=== PATIENT | female | born 1950 | race Caucasian/White ===

== ENCOUNTER 2021-10-03 07:42 | Emergency (ER) | payer OTHER, MEDICAID, SELFPAY ==
[2021-10-03] VITALS (44 sets, daily range): BP systolic 90–130; BP diastolic 56–71; PULSE 67–133; RESP 15–34; TEMP 36.9; O2SAT 85–100; BMI 20.7
--- NOTE | 2021-10-03 07:58 | ED_ITS ---
HPI - Neuro Symptoms/Deficit General Chief Complaint: Shortness of Breath/Dyspnea Stated Complaint: Low ox levels, numbness in lt side of face Time Seen by Provider: 10/03/21 07:57 Source: patient and family Mode of arrival: Ambulatory Limitations: language barrier (primarily Indian speaking, some micronesian) History of Present Illness HPI Narrative: This is a 71-year-old female with history of tuberculosis in 1973 and recently diagnosed lung cancer in [place] comes to emergency department with complaint of low oxygen levels and some numbness on the left side of her face. Patient is primary Indian speaking. Her daughter is currently interpreting for her but they are aware of the language line availability. Patient started having some hemoptysis when she is living in [place]. She went to the hospital and daughter states she had CT and MRI imaging showing cancer on the left lung with some compression of the bronchus and close to an artery, she also had reportedly MRI which showed some kind of lesion in her brain but unclear with this was. Patient has not had any fevers or chills, she has had shortness of breath and wheezing which daughter states is worse. She was giving something similar to albuterol inhaler in [place] which she has used with minimal improvement. She has had increasing fatigue, she has not had any persistent hemoptysis. She has pain in her chest sometimes in the left sometimes on the right and now into the back of the chest. Patient has not had any nausea or vomiting. She has had constipation but no diarrhea. She had some blood in her stool while flying here. She had that 3 years ago. Daughter states she was diagnosed with diverticulitis at that time. She had swelling in her lower extremities on a cramping on the flight over this improved but she had a significant cramping in her legs last night. Patient return to the [place] with her daughter and has been set up with Medicaid. They are trying to establish with a primary care daughter tried to make appointment with Oncology but was told they needed primary care physician referral 1st. With patient's worsening shortness of breath and O2 sat dropping to 88% at home with a home pulse ox they present here. Patient and family state no prior surgeries. No known drug allergies. No daily medications besides the inhaler that is recently been prescribed. Patient quit smoking tobacco on Thursday. She does not drink alcohol, no illicit. Related Data Allergies Allergy/AdvReac Type Severity Reaction Status Date / Time No Known Drug Allergies Allergy Verified 10/03/21 07:55 Review of Systems Review of Systems ROS Unobtainable: All systems reviewed & are unremarkable except as noted in HPI and below Exam Narrative Exam Narrative: GEN: well nourished, well appearing female, alert and oriented x 3, patient appears to be in mild distress. HEENT: Atraumatic, pupils are equal round reactive to light, extraocular movements are intact, nares are clear, Throat is clear without any exudates, erythema, tonsillar enlargement or uvular deviation, no facial droop. HEART: Regular rate and rhythm without murmur, clicks, rubs. Pulses are equal in upper and lower extremities LUNGS:Lungs clear to auscultation, no wheezes, rales, crackles, chest moves symmetrically, no tachypnea or accessory muscle use. ABD:bowel sounds normal, soft, non-tender, no guarding, rebound, rigidity, no masses noted, no hepatosplenomegaly :No CVA tenderness MSCL: Non-tender, no muscle atrophy, muscles strength 5/5 upper and lower extremities, full range of motion, normal gait NEURO:CN 2-12 intact, sensation normal SKIN: No rash, erythema or other skin changes. Initial Vital Signs Initial Vital Signs: Vital Signs Temperature 98.4 F 10/03/21 07:42 Pulse Rate 96 H 10/03/21 07:42 Respiratory Rate 18 10/03/21 07:42 Blood Pressure 108/56 L 10/03/21 07:42 Pulse Oximetry 92 10/03/21 07:42 Course Orders Ordered: ED Orders 10/03/21 15:00 Urine Microscopic Stat Discontinued Medications Acetaminophen (Acetaminophen 325 Mg Tablet) 975 mg PO NOW ONE Stop: 10/03/21 10:19 Last Admin: 10/03/21 10:36 Dose: 975 mg Documented by: WOO Dexamethasone (Dexamethasone 10 Mg/Ml Vial) 10 mg IV NOW ONE Stop: 10/03/21 09:58 Last Admin: 10/03/21 10:36 Dose: 10 mg Documented by: WOO Consultations Consultation #1: Dr. Barros, oncology at [facility]. Review patient's findings today, he recommends transfer at this time for bronch, biopsy states they typically do not place stents in the bronchus but it has been discussed in the past. Agrees with dose of dexamethasone and can be evaluated in terms of metastatic lesions in the brain about next steps as well. Time: 10:04 Vital Signs Vital signs: Vital Signs - 8 hr 10/03/21 11:30 10/03/21 12:00 10/03/21 12:38 Pulse Rate 81 80 133 H Respiratory Rate 18 19 18 Blood Pressure Pulse Oximetry 94 95 94 10/03/21 12:40 10/03/21 13:00 10/03/21 13:06 Pulse Rate 70 70 71 Respiratory Rate 23 23 24 Blood Pressure 96/63 90/63 105/71 Pulse Oximetry 96 94 94 10/03/21 13:21 10/03/21 13:30 10/03/21 13:40 Pulse Rate 76 74 71 Respiratory Rate 24 31 H 30 H Blood Pressure 126/68 101/59 L Pulse Oximetry 95 96 96 10/03/21 14:00 10/03/21 14:20 10/03/21 14:30 Pulse Rate 74 70 70 Respiratory Rate 23 21 31 H Blood Pressure 100/62 99/62 Pulse Oximetry 96 96 97 10/03/21 14:40 10/03/21 15:01 10/03/21 15:30 Pulse Rate 73 84 72 Respiratory Rate 30 H 21 Blood Pressure 102/59 L Pulse Oximetry 96 88 L 93 10/03/21 16:00 10/03/21 16:30 10/03/21 17:00 Pulse Rate 78 73 76 Respiratory Rate 34 H 24 31 H Blood Pressure Pulse Oximetry 94 96 96 MDM - Neuro Symptoms/Deficit Lab Data Result diagrams: 10/03/21 08:02 10/03/21 08:02 Labs: Lab Results 10/03/21 10/03/21 10/03/21 Range/Units 08:02 08:02 08:02 WBC 10.5 (4.5-11.0) X10^3/uL RBC 4.56 (4.0-5.2) X10^6/uL Hgb 12.8 (12.0-16.0) g/dL Hct 38.2 (36-46) % MCV 83.8 (80-100) fL MCH 28.1 (26-34) PG MCHC 33.6 (30-36) % RDW 15.2 H (11.6-14.8) % Plt Count 336 (150-400) X10^3/uL Neut % (Auto) 77.1 H (50-75) % Lymph % (Auto) 16.1 L (25-40) % [place] % (Auto) 5.6 (3-14) % Eos % (Auto) 0.5 L (2-4) % Baso % (Auto) 0.7 (0-2) % Neut # (Auto) 8100 H (5524-5063) /uL Lymph # (Auto) 1700 (5783-3016) /uL [place] # (Auto) 600 (0-900) /uL Eos # (Auto) 100 (0-450) /uL Baso # (Auto) 100 (0-100) /uL PT (10.1-12.7) SECONDS INR (0.9-1.3) APTT (26.4-36.2) SECONDS Sodium 136 L (137-145) mmol/L Potassium 4.3 (3.4-5.1) mmol/L Chloride 102 (98-107) mmol/L Carbon Dioxide 28 (22-32) mmol/L BUN 29 H (7-17) mg/dL Creatinine 0.77 (0.52-1.04) mg/dL Estimated GFR > 60 (>60) mL/min BUN/Creatinine Ratio 37.7 H (6-22) Glucose 204 H (80-110) mg/dL Lactate 1.8 (0.7-2.1) mmol/L Calcium 9.7 (8.4-10.2) mg/dL Total Bilirubin 0.2 (0.2-1.3) mg/dL AST 21 (14-36) IU/L ALT 16 (<35) IU/L Alkaline Phosphatase 78 (38-126) U/L Total Creatine Kinase (30-135) U/L CK-MB (CK-2) CK-MB (CK-2) Rel Index Troponin I (0.01-0.034) ng/mL NT-Pro-B Natriuret Pep (<125) pg/mL Total Protein 7.8 (6.3-8.2) g/dL Albumin 3.9 (3.5-5.0) g/dL Globulin 3.9 (1.7-4.1) g/dL Albumin/Globulin Ratio 1.0 (1.0-2.8) Urine RBC (0-5/HPF) Urine WBC (0-5/HPF) Ur Squamous Epith Cells (0-5/HPF) Urine Bacteria (None) Ur Culture Indicated? SARS-CoV-2 (PCR) (Negative) 10/03/21 10/03/21 10/03/21 Range/Units 08:02 08:02 08:07 WBC (4.5-11.0) X10^3/uL RBC (4.0-5.2) X10^6/uL Hgb (12.0-16.0) g/dL Hct (36-46) % MCV (80-100) fL MCH (26-34) PG MCHC (30-36) % RDW (11.6-14.8) % Plt Count (150-400) X10^3/uL Neut % (Auto) (50-75) % Lymph % (Auto) (25-40) % [place] % (Auto) (3-14) % Eos % (Auto) (2-4) % Baso % (Auto) (0-2) % Neut # (Auto) (6707-0034) /uL Lymph # (Auto) (7042-1002) /uL [place] # (Auto) (0-900) /uL Eos # (Auto) (0-450) /uL Baso # (Auto) (0-100) /uL PT 14.3 H (10.1-12.7) SECONDS INR 1.3 (0.9-1.3) APTT 31 (26.4-36.2) SECONDS Sodium (137-145) mmol/L Potassium (3.4-5.1) mmol/L Chloride (98-107) mmol/L Carbon Dioxide (22-32) mmol/L BUN (7-17) mg/dL Creatinine (0.52-1.04) mg/dL Estimated GFR (>60) mL/min BUN/Creatinine Ratio (6-22) Glucose (80-110) mg/dL Lactate (0.7-2.1) mmol/L Calcium (8.4-10.2) mg/dL Total Bilirubin (0.2-1.3) mg/dL AST (14-36) IU/L ALT (<35) IU/L Alkaline Phosphatase (38-126) U/L Total Creatine Kinase 28 L (30-135) U/L CK-MB (CK-2) TNP CK-MB (CK-2) Rel Index TNP Troponin I < 0.012 (0.01-0.034) ng/mL NT-Pro-B Natriuret Pep 287 H (<125) pg/mL Total Protein (6.3-8.2) g/dL Albumin (3.5-5.0) g/dL Globulin (1.7-4.1) g/dL Albumin/Globulin Ratio (1.0-2.8) Urine RBC (0-5/HPF) Urine WBC (0-5/HPF) Ur Squamous Epith Cells (0-5/HPF) Urine Bacteria (None) Ur Culture Indicated? SARS-CoV-2 (PCR) Negative (Negative) 10/03/21 Range/Units 15:00 WBC (4.5-11.0) X10^3/uL RBC (4.0-5.2) X10^6/uL Hgb (12.0-16.0) g/dL Hct (36-46) % MCV (80-100) fL MCH (26-34) PG MCHC (30-36) % RDW (11.6-14.8) % Plt Count (150-400) X10^3/uL Neut % (Auto) (50-75) % Lymph % (Auto) (25-40) % [place] % (Auto) (3-14) % Eos % (Auto) (2-4) % Baso % (Auto) (0-2) % Neut # (Auto) (5355-4996) /uL Lymph # (Auto) (1371-5600) /uL [place] # (Auto) (0-900) /uL Eos # (Auto) (0-450) /uL Baso # (Auto) (0-100) /uL PT (10.1-12.7) SECONDS INR (0.9-1.3) APTT (26.4-36.2) SECONDS Sodium (137-145) mmol/L Potassium (3.4-5.1) mmol/L Chloride (98-107) mmol/L Carbon Dioxide (22-32) mmol/L BUN (7-17) mg/dL Creatinine (0.52-1.04) mg/dL Estimated GFR (>60) mL/min BUN/Creatinine Ratio (6-22) Glucose (80-110) mg/dL Lactate (0.7-2.1) mmol/L Calcium (8.4-10.2) mg/dL Total Bilirubin (0.2-1.3) mg/dL AST (14-36) IU/L ALT (<35) IU/L Alkaline Phosphatase (38-126) U/L Total Creatine Kinase (30-135) U/L CK-MB (CK-2) CK-MB (CK-2) Rel Index Troponin I (0.01-0.034) ng/mL NT-Pro-B Natriuret Pep (<125) pg/mL Total Protein (6.3-8.2) g/dL Albumin (3.5-5.0) g/dL Globulin (1.7-4.1) g/dL Albumin/Globulin Ratio (1.0-2.8) Urine RBC None seen (0-5/HPF) Urine WBC 0-1/hpf (0-5/HPF) Ur Squamous Epith Cells 0-1 /hpf (0-5/HPF) Urine Bacteria None seen (None) Ur Culture Indicated? Cult not indicated SARS-CoV-2 (PCR) (Negative) Imaging Data CT scan - head: Radiologist's Impression: [place] [address] CT Scan Report Signed Patient: Hanh Molina MR#: [id number] : 1950 Acct:[id number] Age/Sex: 71 / F Date of Service: 10/03/21 Loc: ED Accession Number: [id number] ?? Procedure: CT head/brain wo/w con Ordering Provider: Leanna Najera D.O. PROCEDURE:? CT HEAD/BRAIN WO/W CON ? INDICATIONS:? new facial numbness, reported lung ca ? TECHNIQUE:? 4.5 mm thick angled axial sections acquired from the foramen magnum to the vertex both before and after the administration of intravenous contrast, with coronal and sagittal reformats.? For radiation dose reduction, the following was used:? automated exposure control, adjustment of mA and/or kV according to patient size.? ? COMPARISON:? Outside Facility, RG, MRI BRAIN WITH CONTRAST, 09/20/2021, 10:37. ? FINDINGS:? Image quality:? Excellent.? ? CSF spaces:? Basal cisterns are patent.? No extra-axial fluid collections.? Ventricles are symmetric in size and shape.? ? Brain:? No midline shift.? No intracranial bleeds.? 2.1 centimeter ring enhancing lesion noted in the right frontal lobe.? 6 millimeter in diameter ring-enhancing lesion noted in the right cingulate gyrus.? 4 millimeter ring-enhancing lesion noted in the left frontal lobe.? 7 millimeter ring-enhancing lesion noted in the left parietal lobe.? Vasogenic edema noted adjacent to the metastatic lesions.? No abnormal intracranial enhancement.? There is cerebral volume loss for age.? There is periventricular white matter chronic small vessel ischemic change.? There is intracranial internal carotid artery atherosclerosis.? There is normal postcontrast enhancement of the central cerebral arteries and the dural sinuses.? ? Skull and face:? Calvarium and visualized facial bones appear intact, without suspicious lesions.? ? Sinuses:? Visualized sinuses and mastoids are clear.? ? IMPRESSION:? ? Multiple enhancing masses compatible with metastatic disease.? Largest lesion is in the right frontal lobe and measures 2.1 centimeters in diameter. ? ? No intracranial hemorrhage.? ? Dictated by: Shari Hull MD, PhD on 10/03/2021 at 9:33 ? ? Approved by: Shari Hull MD, PhD on 10/03/2021 at 9:39?? CT scan - chest: Radiologist's Impression: [place] [address] CT Scan Report Signed Patient: Hanh Molina MR#: [id number] : 1950 Acct:[id number] Age/Sex: 71 / F Date of Service: 10/03/21 Loc: ED Accession Number: [id number] ?? Procedure: CT angio chest PE protocol Ordering Provider: Leanna Najera D.O. PROCEDURE:? CT ANGIO CHEST PE PROTOCOL ? INDICATIONS:? sob, reported lung ca, recent flight from [place] ? TECHNIQUE:? After the administration of intravenous contrast, 2 mm thick sections acquired from the pulmonary apices to the posterior costophrenic angles.? 3-dimensional maximum intensity projection (MIP) coronal and sagittal reformats were then acquired through the thorax.? For radiation dose reduction, the following was used:? automated exposure control, adjustment of mA and/or kV according to patient size.? ? COMPARISON:? Outside Facility, RG, CT THORAX WITH CONTRAST, 08/21/2021, 9:23. ? FINDINGS:? Image quality:? Excellent.? ? Pulmonary arteries:? There is marked compression of the right main pulmonary artery, which is progressive compared to prior exam.? Luminal dimension measures approximately 1 cm, compared to 1.5 cm on prior exam.? There is no visualized pulmonary embolism. ? Lungs and pleura:? Left lingular/perihilar mass is again identified measuring approximately 4.9 cm AP x 5.8 cm transverse compared to 4.6 cm AP x 5.4 cm transverse.? The mass extends into the aortic pulmonary window as well as mediastinum.? There is marked narrowing and the ventral occlusion of the distal aspect of the left mainstem bronchus with presumed distal left upper lobe lung collapse/atelectasis. ? Mediastinum:? Heart size is normal, with mild-moderate pericardial effusion.? Mediastinal adenopathy is present which has increased compared to prior exam.? A precarinal lymph node is present measuring 9 mm on series 2, image 69 measuring 4 mm on prior exam.? Subcarinal lymph node is present measuring 9 mm on series 2, image 76 previously measuring 5 mm.? Thoracic aorta is normal in caliber and enhancement.? Esophagus is normal in caliber, with mild hiatal hernia.? ? Bones and chest wall:? No suspicious bony lesions.? Ribs and thoracic spine appear intact throughout.? Thyroid gland is unremarkable.? No axillary or supraclavicular adenopathy.? ? Abdomen:? Calcifications are present within the spleen suggestive of prior granulomatous exposure.? Partially visualized presume simple right renal cyst is present.? Visualized upper abdominal solid organs appear normal in the early arterial phase of enhancement.? ? IMPRESSION:? ? Increased size of left upper lobe/perihilar mass with now occlusion of the left mainstem bronchus and distal atelectasis of the left upper lobe. ? No pulmonary embolism.? However, secondary to perihilar mass enlargement, there is marked interval narrowing of the left main pulmonary artery. ? Interval enlargement of mediastinal lymph nodes suggestive of metastatic disease progression. ? Mild pericardial effusion. ? ? Dictated by: Ellie Christianson M.D. on 10/03/2021 at 9:25 ? ? Approved by: Ellie Christianson M.D. on 10/03/2021 at 9:33?? ECG Data Attestation: I personally reviewed and interpreted this ECG as follows: Interpretation: Sinus rhythm rate 89 IN 124 QRS 84 and QTC 401. Patient's T-waves appear peaked but no other acute changes appreciated. No priors for comparison. MDM Narrative Medical decision making narrative: This is a 71-year-old female who was diagnosed with lung cancer in [facility]. Family did bring discs with them today, patient's family brought her here to the [facility] for treatment and family support. Patient has had increasing wheezing, chest pain and shortness of breath family has noted that her O2 sat is 88% at home. She initially was diagnosed secondary to having hemoptysis but has not had this persistently. They noted there was maybe a spot on an MRI in [place] and patient developed tingling on the side of her left face today. Patient not have any other known history besides tuberculosis and the 1970s which is reportedly treated. She is not normally on any daily medications she has an inhaler which is likely albuterol or similar she was discharged home with in [place]. Patient's head CT does show multiple enhancing masses compatible with metastatic disease the largest being 2.1 cm in diameter in the right frontal lobe, patient was given a dose of dexamethasone is there is some vasogenic edema noted. CT of the chest we were able to compare to her prior scans which her daughter brought with her shows left upper lobe/perihilar mass with occlusion of the left main stream bronchus and distal atelectasis of the left upper lobe, no PE but there is some interval narrowing of the left main pulmonary artery and metastatic and interval enlargement of mediastinal lymph nodes suggesting metastatic disease. Patient's labs show an elevated BUN, glucose of 204 no other major abnormalities. BNP is 287 but unlikely to be true CHF. EKG does show some peaked T-waves I suspect this may be secondary to the mass effect from her cancer. COVID swab is negative. Patient is requiring O2 to maintain O2 sats above 90%. Case was discussed with Oncology, who does recommend transfer today. There is no bed available regionally. [facility] hotline contacted and currently waitlisted and will assist in placement. Patient signed out to Dr. Escalante while attempting to find bed placement. Discharge Plan Departure Clinical Impression: Cancer, metastatic to lung, Facial tingling, Hypoxemia
[2021-10-03 08:19] LABS: Add Manual Diff / Slide Review NO; Basophils Absolute Auto 100 /uL (0-100); Basophils Percent Auto 0.7 % (0-2); Eosinophils Absolute Auto 100 /uL (0-450); Eosinophils Percent Auto 0.5 % (2-4); Hematocrit 38.2 % (36-46); Hemoglobin 12.8 g/dL (12.0-16.0); Lymphocytes Absolute Auto 1700 /uL (1100-4500); Lymphocytes Percent Auto 16.1 % (25-40); Mean Corpuscular HGB Conc 33.6 % (30-36); Mean Corpuscular Hemoglobin 28.1 PG (26-34); Mean Corpuscular Volume 83.8 fL (80-100); Monocytes Absolute Auto 600 /uL (0-900); Monocytes Percent Auto 5.6 % (3-14); Neutrophils Absolute Auto 8100 /uL (1500-7000); Neutrophils Percent Auto 77.1 % (50-75); Platelet Count 336 X10^3/uL (150-400); Red Blood Cell Count 4.56 X10^6/uL (4.0-5.2); Red Cell Distribution Width 15.2 % (11.6-14.8); White Blood Cell Count 10.5 X10^3/uL (4.5-11.0)
--- NOTE | 2021-10-03 08:25 | DI.CT.S_ITS ---
PROCEDURE: CT ANGIO CHEST PE PROTOCOL INDICATIONS: sob, reported lung ca, recent flight from [place] TECHNIQUE: After the administration of intravenous contrast, 2 mm thick sections acquired from the pulmonary apices to the posterior costophrenic angles. 3-dimensional maximum intensity projection (MIP) coronal and sagittal reformats were then acquired through the thorax. For radiation dose reduction, the following was used: automated exposure control, adjustment of mA and/or kV according to patient size. COMPARISON: Outside Facility, RG, CT THORAX WITH CONTRAST, 08/21/2021, 9:23. FINDINGS: Image quality: Excellent. Pulmonary arteries: There is marked compression of the right main pulmonary artery, which is progressive compared to prior exam. Luminal dimension measures approximately 1 cm, compared to 1.5 cm on prior exam. There is no visualized pulmonary embolism. Lungs and pleura: Left lingular/perihilar mass is again identified measuring approximately 4.9 cm AP x 5.8 cm transverse compared to 4.6 cm AP x 5.4 cm transverse. The mass extends into the aortic pulmonary window as well as mediastinum. There is marked narrowing and the ventral occlusion of the distal aspect of the left mainstem bronchus with presumed distal left upper lobe lung collapse/atelectasis. Mediastinum: Heart size is normal, with mild-moderate pericardial effusion. Mediastinal adenopathy is present which has increased compared to prior exam. A precarinal lymph node is present measuring 9 mm on series 2, image 69 measuring 4 mm on prior exam. Subcarinal lymph node is present measuring 9 mm on series 2, image 76 previously measuring 5 mm. Thoracic aorta is normal in caliber and enhancement. Esophagus is normal in caliber, with mild hiatal hernia. Bones and chest wall: No suspicious bony lesions. Ribs and thoracic spine appear intact throughout. Thyroid gland is unremarkable. No axillary or supraclavicular adenopathy. Abdomen: Calcifications are present within the spleen suggestive of prior granulomatous exposure. Partially visualized presume simple right renal cyst is present. Visualized upper abdominal solid organs appear normal in the early arterial phase of enhancement. IMPRESSION: Increased size of left upper lobe/perihilar mass with now occlusion of the left mainstem bronchus and distal atelectasis of the left upper lobe. No pulmonary embolism. However, secondary to perihilar mass enlargement, there is marked interval narrowing of the left main pulmonary artery. Interval enlargement of mediastinal lymph nodes suggestive of metastatic disease progression. Mild pericardial effusion. Dictated by: Ellie Christianson M.D. on 10/03/2021 at 9:25 Approved by: Ellie Christianson M.D. on 10/03/2021 at 9:33
--- NOTE | 2021-10-03 08:26 | DI.CT.S_ITS ---
PROCEDURE: CT HEAD/BRAIN WO/W CON INDICATIONS: new facial numbness, reported lung ca TECHNIQUE: 4.5 mm thick angled axial sections acquired from the foramen magnum to the vertex both before and after the administration of intravenous contrast, with coronal and sagittal reformats. For radiation dose reduction, the following was used: automated exposure control, adjustment of mA and/or kV according to patient size. COMPARISON: Outside Facility, RG, MRI BRAIN WITH CONTRAST, 09/20/2021, 10:37. FINDINGS: Image quality: Excellent. CSF spaces: Basal cisterns are patent. No extra-axial fluid collections. Ventricles are symmetric in size and shape. Brain: No midline shift. No intracranial bleeds. 2.1 centimeter ring enhancing lesion noted in the right frontal lobe. 6 millimeter in diameter ring-enhancing lesion noted in the right cingulate gyrus. 4 millimeter ring-enhancing lesion noted in the left frontal lobe. 7 millimeter ring-enhancing lesion noted in the left parietal lobe. Vasogenic edema noted adjacent to the metastatic lesions. No abnormal intracranial enhancement. There is cerebral volume loss for age. There is periventricular white matter chronic small vessel ischemic change. There is intracranial internal carotid artery atherosclerosis. There is normal postcontrast enhancement of the central cerebral arteries and the dural sinuses. Skull and face: Calvarium and visualized facial bones appear intact, without suspicious lesions. Sinuses: Visualized sinuses and mastoids are clear. IMPRESSION: Multiple enhancing masses compatible with metastatic disease. Largest lesion is in the right frontal lobe and measures 2.1 centimeters in diameter. No intracranial hemorrhage. Dictated by: Shari Hull MD, PhD on 10/03/2021 at 9:33 Approved by: Shari Hull MD, PhD on 10/03/2021 at 9:39
[2021-10-03 08:28] LABS: Alanine Aminotransferase 16 IU/L (<35); Albumin 3.9 g/dL (3.5-5.0); Alkaline Phosphatase 78 U/L (38-126); Aspartate Aminotransferase 21 IU/L (14-36); BUN Creatinine Ratio 37.7 (6-22); Bilirubin Total 0.2 mg/dL (0.2-1.3); Blood Urea Nitrogen 29 mg/dL (7-17); Calcium 9.7 mg/dL (8.4-10.2); Carbon Dioxide 28 mmol/L (22-32); Chloride 102 mmol/L (98-107); Estimated Glomerular Filt Rate > 60 mL/min (>60); Globulin 3.9 g/dL (1.7-4.1); Glucose 204 mg/dL (80-110); HEMOLYSIS < 15 (0-50); Potassium 4.3 mmol/L (3.4-5.1); Sodium 136 mmol/L (137-145); Total Protein 7.8 g/dL (6.3-8.2)
[2021-10-03 08:31] LABS: Lactate (Lactic Acid) 1.8 mmol/L (0.7-2.1)
[2021-10-03 08:41] LABS: INR 1.3 (0.9-1.3); Prothrombin Time 14.3 SECONDS (10.1-12.7)
[2021-10-03 08:43] LABS: Creatine Kinase 28 U/L (30-135); PTT Partial Thromboplastin Tim 31 SECONDS (26.4-36.2)
[2021-10-03 08:57] LABS: NT-proBNP (BNP-Adult 18+) 287 pg/mL (<125); Troponin I < 0.012 ng/mL (0.01-0.034)
[2021-10-03 09:36] LABS: COVID19 -Nasal RAPID Negative (Negative)
--- NOTE | 2021-10-03 09:48 | PC.NURSE ---
0800 Pt O2 sat at 88, placed on 2L O2 ... new sat 95%.
[2021-10-03] MEDS: DEXAMETHASONE 10 MG/ML VIAL IV (10:36)
[2021-10-03] MEDS: ACETAMINOPHEN 325 MG TABLET 975 MG PO (10:36)
[2021-10-03 17:38] LABS: Bacteria Urine None Seen; Culture Indicated Urine Cult Not Indicated; RBC Urine None Seen (0-5/HPF); Squamous Epithelial Cell Urine 0-1 /HPF (0-5/HPF); WBC Urine 0-1/HPF (0-5/HPF)
[2021-10-04] VITALS (52 sets, daily range): BP systolic 95–127; BP diastolic 56–66; PULSE 66–93; RESP 14–34; TEMP 36.6; O2SAT 93–99
[2021-10-04 09:35] LABS: Alanine Aminotransferase 19 IU/L (<35); Albumin 3.8 g/dL (3.5-5.0); Alkaline Phosphatase 76 U/L (38-126); Aspartate Aminotransferase 23 IU/L (14-36); BUN Creatinine Ratio 34.4 (6-22); Bilirubin Total 0.2 mg/dL (0.2-1.3); Blood Urea Nitrogen 21 mg/dL (7-17); Calcium 9.7 mg/dL (8.4-10.2); Carbon Dioxide 31 mmol/L (22-32); Chloride 101 mmol/L (98-107); Estimated Glomerular Filt Rate > 60 mL/min (>60); Globulin 3.8 g/dL (1.7-4.1); Glucose 230 mg/dL (80-110); HEMOLYSIS < 15 (0-50); Potassium 4.4 mmol/L (3.4-5.1); Sodium 138 mmol/L (137-145); Total Protein 7.6 g/dL (6.3-8.2)
[2021-10-04 09:36] LABS: Add Manual Diff / Slide Review NO; Basophils Absolute Auto 0 /uL (0-100); Basophils Percent Auto 0.2 % (0-2); Eosinophils Absolute Auto 0 /uL (0-450); Eosinophils Percent Auto 0.1 % (2-4); Hematocrit 36.4 % (36-46); Hemoglobin 12.1 g/dL (12.0-16.0); Lymphocytes Absolute Auto 1600 /uL (1100-4500); Lymphocytes Percent Auto 12.1 % (25-40); Mean Corpuscular HGB Conc 33.4 % (30-36); Mean Corpuscular Hemoglobin 27.7 PG (26-34); Mean Corpuscular Volume 83.1 fL (80-100); Monocytes Absolute Auto 500 /uL (0-900); Monocytes Percent Auto 3.7 % (3-14); Neutrophils Absolute Auto 11400 /uL (1500-7000); Neutrophils Percent Auto 83.9 % (50-75); Platelet Count 312 X10^3/uL (150-400); Red Blood Cell Count 4.38 X10^6/uL (4.0-5.2); Red Cell Distribution Width 14.9 % (11.6-14.8); White Blood Cell Count 13.6 X10^3/uL (4.5-11.0)
[2021-10-04] MEDS: DEXAMETHASONE 4 MG/ML VIAL IV ×2 (14:14→22:32)
[2021-10-05] VITALS (152 sets, daily range): BP systolic 80–131; BP diastolic 46–82; PULSE 69–141; RESP 14–39; O2SAT 88–100
--- NOTE | 2021-10-05 00:36 | PC.NURSE ---
Received a phone call from [facility] for update on bed status and pt condition: pt still on waitlists at multiple hospitals, all hospitals are boarding patients in ER's. No beds expected to become available. Dr Escalante notified.
[2021-10-05] MEDS: DEXAMETHASONE 4 MG/ML VIAL IV ×3 (06:09→22:07)
[2021-10-05 06:24] LABS: Add Manual Diff / Slide Review NO; Basophils Absolute Auto 100 /uL (0-100); Basophils Percent Auto 0.4 % (0-2); Eosinophils Absolute Auto 0 /uL (0-450); Eosinophils Percent Auto 0.1 % (2-4); Hemoglobin 12.2 g/dL (12.0-16.0); Lymphocytes Absolute Auto 1000 /uL (1100-4500); Lymphocytes Percent Auto 8.2 % (25-40); Mean Corpuscular HGB Conc 33.1 % (30-36); Mean Corpuscular Hemoglobin 27.6 PG (26-34); Mean Corpuscular Volume 83.3 fL (80-100); Monocytes Absolute Auto 400 /uL (0-900); Monocytes Percent Auto 3.2 % (3-14); Neutrophils Absolute Auto 11200 /uL (1500-7000); Neutrophils Percent Auto 88.1 % (50-75); Platelet Count 307 X10^3/uL (150-400); Red Blood Cell Count 4.44 X10^6/uL (4.0-5.2); Red Cell Distribution Width 14.8 % (11.6-14.8); White Blood Cell Count 12.7 X10^3/uL (4.5-11.0)
[2021-10-05 06:27] LABS: BUN Creatinine Ratio 41.4 (6-22); Blood Urea Nitrogen 24 mg/dL (7-17); Calcium 9.4 mg/dL (8.4-10.2); Carbon Dioxide 31 mmol/L (22-32); Chloride 102 mmol/L (98-107); Estimated Glomerular Filt Rate > 60 mL/min (>60); Glucose 128 mg/dL (80-110); HEMOLYSIS < 15 (0-50); Potassium 4.7 mmol/L (3.4-5.1); Sodium 139 mmol/L (137-145)
[2021-10-05] MEDS: HEPARIN 5,000 UNIT/ML VIAL 5000 UNIT SUBCUT ×2 (09:28→22:06)
--- NOTE | 2021-10-05 10:29 | PC.NURSE ---
Patient ambulated without o2 and reported feeling SOB.
--- NOTE | 2021-10-05 10:48 | PC.NURSE ---
tachypneic and tachycardic to ambulate without oxygen. desaturation off oxygen and ambulating see ambulation trial documentation
[2021-10-05] MEDS: METOPROLOL ER 25 MG TABLET PO (16:00)
[2021-10-05] MEDS: dilTIAZem 5 MG/ML SDV 10 MG IV (17:33)
[2021-10-05] MEDS: DILTIAZEM 125 MG/125 ML PIGGYBACK IV (17:34)
--- NOTE | 2021-10-05 22:31 | CM.MNRNOTE ---
At approximately 1500 pt heart rate noted in the 120's sustained, Dr. Cai notified and new orders including EKG. Pt in afib, not noted to be in afib previously. Pt denies CP/SOB, stated she generally felt unwell at time, rate increases with exertion. Education regarding rhythm provided and interventions, understanding verbalized. Rate controlled with diltiazem and pt verbalized improvement in symptoms.
[2021-10-06] VITALS (91 sets, daily range): BP systolic 88–124; BP diastolic 52–73; PULSE 66–152; RESP 14–53; TEMP 36.7; O2SAT 85–99
[2021-10-06] MEDS: DEXAMETHASONE 4 MG/ML VIAL IV ×2 (06:42→14:26)
[2021-10-06 08:43] LABS: BUN Creatinine Ratio 45.6 (6-22); Blood Urea Nitrogen 26 mg/dL (7-17); Calcium 9.4 mg/dL (8.4-10.2); Carbon Dioxide 31 mmol/L (22-32); Chloride 101 mmol/L (98-107); Estimated Glomerular Filt Rate > 60 mL/min (>60); Glucose 121 mg/dL (80-110); HEMOLYSIS < 15 (0-50); Potassium 4.6 mmol/L (3.4-5.1); Sodium 139 mmol/L (137-145)
[2021-10-06 08:52] LABS: Add Manual Diff / Slide Review NO; Basophils Absolute Auto 100 /uL (0-100); Basophils Percent Auto 0.3 % (0-2); Eosinophils Absolute Auto 0 /uL (0-450); Hematocrit 39.6 % (36-46); Hemoglobin 12.8 g/dL (12.0-16.0); Lymphocytes Absolute Auto 1700 /uL (1100-4500); Mean Corpuscular HGB Conc 32.2 % (30-36); Mean Corpuscular Volume 83.7 fL (80-100); Monocytes Absolute Auto 700 /uL (0-900); Monocytes Percent Auto 3.2 % (3-14); Neutrophils Absolute Auto 18800 /uL (1500-7000); Neutrophils Percent Auto 88.5 % (50-75); Platelet Count 394 X10^3/uL (150-400); Red Blood Cell Count 4.74 X10^6/uL (4.0-5.2); Red Cell Distribution Width 15.1 % (11.6-14.8); White Blood Cell Count 21.3 X10^3/uL (4.5-11.0)
[2021-10-06] MEDS: HEPARIN 5,000 UNIT/ML VIAL 5000 UNIT SUBCUT (08:59)
[2021-10-06] MEDS: ACETAMINOPHEN 325 MG TABLET 650 MG PO (08:59)
--- NOTE | 2021-10-06 09:09 | DI.RAD.S_ITS ---
PROCEDURE: XR CHEST 2V INDICATIONS: Eval for PNA TECHNIQUE: 2 views of the chest were acquired. COMPARISON: Outside Facility, RG, CT THORAX WITH CONTRAST, 08/21/2021, 9:23. Outside Facility, RG, CT ABDOMEN WITH CONTRAST, 08/29/2021, 13:49. [facility], CT, CT ANGIO CHEST PE PROTOCOL, 10/03/2021, 8:57. FINDINGS: Surgical changes and devices: None. Overlying EKG wires. Lungs and pleura: Left perihilar mass better depicted on recent CT chest PE. There is likely complete collapse of the left upper lobe. No new consolidation. No pleural effusion. No pneumothorax. Mediastinum: Mediastinal contours are normal. Heart size is normal. Bones and chest wall: No suspicious bony abnormalities. Soft tissues appear unremarkable. IMPRESSION: Grossly unchanged left hilar mass compared to the 10/03/2021 CT. Resultant left upper lobe collapse is also grossly unchanged. No new consolidation. Dictated by: Artie Stover D.O. on 10/06/2021 at 8:38 Approved by: Artie Stover D.O. on 10/06/2021 at 8:42
[2021-10-06 09:33] LABS: Lactate (Lactic Acid) 1.6 mmol/L (0.7-2.1)
[2021-10-06 09:50] LABS: Procalcitonin 0.05 ng/mL (<0.5)
[2021-10-06 10:38] LABS: Appearance Urine UA SL CLOUDY; Bilirubin Urine UA NEGATIVE (NEGATIVE); Color Urine UA YELLOW; Glucose Urine UA NEGATIVE (Negative); Ketones Urine UA NEGATIVE (NEGATIVE); Leukocyte Esterase Urine UA TRACE (NEGATIVE); Nitrite Urine UA NEGATIVE (Negative); Occult Blood Urine UA 1+ (Negative); Protein Urine UA NEGATIVE (Negative); Specific Gravity Urine UA 1.025 (1.000-1.035); Urobilinogen Urine UA 0.2 E.U./dL (0.2); pH Urine UA 5.5 (4.5-8.0)
[2021-10-06 10:48] LABS: Amorphous Sediment Urine 1+; Bacteria Urine Moderate (10-30); Mucus Urine 2+ (Negative); RBC Urine 1-5/HPF (0-5/HPF); Renal Epithelial Cells Urine 1-5/HPF (0-1/HPF); Squamous Epithelial Cell Urine 1-5 /HPF (0-5/HPF); WBC Urine 10-30/HPF (0-5/HPF)
[2021-10-06] MEDS: cephALEXin 250 MG CAPSULE 500 MG PO ×2 (12:16→19:42)
[2021-10-06 18:59] LABS: COVID19 -Nasal RAPID Negative (Negative)
--- NOTE | 2021-10-06 20:15 | PC.NURSE ---
Pt updated on plan to transfer, language line utilized. Pt verbalizes understanding and expressed happiness regarding the news. Pt daughter Naz called and also updated regarding plan, all questions answered.
--- NOTE | 2021-10-06 20:57 | PC.NURSE ---
Report called to [facility] #[phone] ext: [phone].
== END 2021-10-06 21:26 | disposition short-term general hospital (02) ==
PROVIDERS: Emergency Medicine; Emergency Provider Emergency Medicine
DX: C78.00 Secondary malignant neoplasm of unspecified lung (principal); R20.2 Paresthesia of skin; R09.02 Hypoxemia; R06.82 Tachypnea, not elsewhere classified; I48.91 Unspecified atrial fibrillation; R00.0 Tachycardia, unspecified; Z20.822 Contact with and (suspected) exposure to COVID-19
CPT/HCPCS: 36415; 70470; 71046; 71275; 80048; 80053; 81001; 81015; 82550; 83605; 83880; 84145; 84484; 85025; 85610; 85730; 87040; 87077; 87086; 87186; 87635; 93005; 93010; 96365; 96366; 96372; 96375; 96376; 99285; C9803; J1100; J1644